=== PATIENT | female | born 1965 | race Caucasian/White ===

== ENCOUNTER 2023-12-01 08:50 | Emergency (ER) | payer BC ==
[~2023-12-01] VITALS: Ht 160 cm; Wt 104.4 kg
[~2023-12-01 08:50] MED LIST: TRAMADOL HYDROC50 M1 PO; ZOFRAN4 MG/TAB PO
[2023-12-01 09:12] LABS: BASO% 0.3 % (0-3); EOS% 3.5 % (0-8); HEMATOCRIT 45.9 % (37.0-47.0); IMMATURE GRANULOCYTES 0.1 % (0.0-5.0); LYMPH% 33.4 % (15-41); MEAN CELL VOLUME 97.7 fL CALC (80.0-100.0); MEAN CORPUSCULAR HGB 31.9 pG CALC (26.0-32.0); MEAN CORPUSCULAR HGB CONC 32.7 g/dL CAL (32.0-36.0); MONO% 7.5 % (2-13); NEUT# 4.86 thou/uL (2.00-7.15); NEUT% 55.2 % (42-76); RED BLOOD COUNT 4.7 mill/uL (4.20-5.60); RED CELL DISTRI WIDTH 12.6 % (11.5-15.5)
[2023-12-01 09:50] LABS: ALBUMIN 4.3 g/dL (3.2-5.0); ALKALINE PHOSPHATASE 59 u/l (38-126); ANION GAP 10 (6-22 (CALC)); BILIRUBIN, TOTAL 0.3 mg/dL (0.02-1.3); BUN 11 mg/dL (7-17); BUN/CREATININE RATIO 14 (12-20 (CALC)); CARBON DIOXIDE 26 mmol/l (22-30); CHLORIDE 107 mmol/l (95-108); CREATININE 0.8 mg/dL (0.5-1.0); GFR FOR AFR.AMER. > 60 ML/MIN (>=60 (CALC)); GFR OTHER RACES > 60 ML/MIN (>=60 (CALC)); LIPASE 63 u/l (23-300); POTASSIUM 4.2 mmol/l (3.5-5.1); SGOT/AST 28 u/l (14-36); SODIUM 140 mmol/l (137-146); TOTAL PROTEIN 7.4 g/dL (6.3-8.2)
[2023-12-01 09:56] LABS: URINE BILIRUBIN - DIPSTICK Negative (NEGATIVE); URINE BLOOD DIPSTICK Negative (NEGATIVE); URINE GLUCOSE - DIPSTICK Negative (NEGATIVE); URINE KETONE Negative (NEGATIVE); URINE LEUK ESTERASE Negative (NEGATIVE); URINE NITRITE - DIPSTICK Negative (Negative); URINE PH 5.5 (4.5-8.0); URINE PROTEIN - DIPSTICK Negative (NEG-TRACE); URINE UROBILINOGEN - DIPSTICK 0.2 E.U./dL (0.2)
[2023-12-01 09:59] VITALS: BP 120/73
[2023-12-01 10:00] VITALS: BP 115/74
[2023-12-01 10:01] LABS: URINE COLOR Yellow
[2023-12-01 10:32] VITALS: BP 143/91
[2023-12-01 10:45] VITALS: BP 138/86
[2023-12-01 11:00] VITALS: BP 136/83
[2023-12-01] MEDS ORDERED: NAPROXEN500 MG PO (11:06)
[2023-12-01] MEDS ORDERED: DULCOLAX10 MG RE (11:06)
[2023-12-01] MEDS ORDERED: MIRALAX17 GM PO (11:06)
[2023-12-01 11:15] VITALS: BP 131/85
== END 2023-12-01 11:30 | disposition home or self-care (01) | DRG 392 ==
LOC: ED 08:50
PROVIDERS: Family Medicine
DX: K59.00 Constipation, unspecified (principal); F41.9 Anxiety disorder, unspecified; F32.A Depression, unspecified
CPT/HCPCS: Q9967